=== PATIENT | female | born 1995 | race American Indian/Alaskan Native ===

== ENCOUNTER 2017-04-19 12:31 | Emergency (ER) | payer SELFPAY ==
[2017-04-19 12:39] VITALS: BP 160/101
[2017-04-19 13:25] LABS: Bilirubin,Urine NEG (Negative); Blood,Urine NEG (Negative); Ketones,Urine NEG (Negative); Leukocyte Esterase,Urine MOD (Negative); Mucus,Urine FEW /HPF; Nitrite,Urine NEG (Negative); Protein,Urine <15 mg/dL mg/dL (Negative); Urobilinogen,Urine < 2.0 mg/dL (<2.0)
--- NOTE | 2017-04-19 15:22 | Emergency Department Report ---
ED Abdominal Pain HPI - General Chief Complaint: Urogenital-Female Stated Complaint: Time Seen by Provider: 04/19/17 14:46 Source: patient Mode of arrival: Ambulatory Limitations: No Limitations - History of Present Illness Initial Comments: This is a 21-year-old female nontoxic, well nourished in appearance, no acute signs of distress presents to the ED for a confirmation. Patient stated she had her menstrual cycle last week with abdominal cramping that lasted for 2 days then resolved the patient received again 2 days ago of the spotting but not resolve itself. Patient stated she is concerned that she is and willing to be tested for . Currently in the ED the patient denies any abdominal pain or vaginal bleeding. She had cramping during menstrual cycle but denies having any abdominal cramping now. Patient denies any abdominal pain, nausea, vomiting, chest pain, shortness of breath, numbness , tingling, dysuria, polyuria, hematochezia, back pain, headache, stiff neck, vaginal bleeding. Patient denies any allergies or past medical history. MD Complaint: other ( checkup) -: Gradual, days(s) (2) Radiation: none Migration to: no migration Severity scale (0 -10): 0 Associated Symptoms: denies other symptoms. denies: nausea, vomiting, diarrhea , fever, chills, constipation, dysuria, hematemesis, hematochezia, melena, hematuria, anorexia, syncope - Related Data LMP Date: 04/12/17 Previous Rx's Medication Instructions Recorded Last Taken Type Sulfamethoxazole/Trimethoprim 1 each PO BID #14 tablet 04/19/17 Unknown Rx [Bactrim Ds Tablet] Allergies Allergy/AdvReac Type Severity Reaction Status Date / Time No Known Allergies Allergy Unverified 04/19/17 12:35 ED Review of Systems ROS: Stated complaint: Other details as noted in HPI Constitutional: denies: chills, fever Eyes: denies: eye pain, eye discharge, vision change ENT: denies: ear pain, throat pain Respiratory: denies: cough, shortness of breath, wheezing Cardiovascular: denies: chest pain, palpitations Endocrine: no symptoms reported Gastrointestinal: denies: abdominal pain, nausea, diarrhea Genitourinary: denies: urgency, dysuria, discharge Musculoskeletal: denies: back pain, joint swelling, arthralgia Skin: denies: rash, lesions Neurological: denies: headache, weakness, paresthesias Psychiatric: denies: anxiety, depression Hematological/Lymphatic: denies: easy bleeding, easy bruising ED Past Medical Hx - Past Medical History Previous Medical History?: No - Surgical History Past Surgical History?: No - Social History Smoking Status: Never Smoker Substance Use Type: None - Medications Home Medications: Home Medications Medication Instructions Recorded Confirmed Last Taken Type Sulfamethoxazole/Trimethoprim 1 each PO BID #14 tablet 04/19/17 Unknown Rx [Bactrim Ds Tablet] ED Physical Exam - General Limitations: No Limitations General appearance: alert, in no apparent distress - Head Head exam: Present: atraumatic, normocephalic, normal inspection - Eye Eye exam: Present: normal appearance, PERRL, EOMI. Absent: scleral icterus, conjunctival injection, nystagmus, periorbital swelling, periorbital tenderness Pupils: Present: normal accommodation - ENT ENT exam: Present: normal exam, normal orophraynx, mucous membranes moist, TM's normal bilaterally, normal external ear exam - Neck Neck exam: Present: normal inspection, full ROM. Absent: tenderness, meningismus, lymphadenopathy, thyromegaly - Respiratory Respiratory exam: Present: normal lung sounds bilaterally. Absent: respiratory distress, wheezes, rales, rhonchi, stridor, chest wall tenderness, accessory muscle use, decreased breath sounds, prolonged expiratory - Cardiovascular Cardiovascular Exam: Present: regular rate, normal rhythm, normal heart sounds. Absent: systolic murmur, diastolic murmur, rubs, gallop - GI/Abdominal GI/Abdominal exam: Present: soft, normal bowel sounds. Absent: distended, tenderness, guarding, rebound, rigid, diminished bowel sounds - Expanded GI/Abdominal Exam Expanded GI/Abdominal exam: Absent: psoas sign, obturator sign, heel tap sign, Tobar's sign, Rovsing's sign, tenderness at Mcburney's Point - Rectal Rectal exam: Present: deferred - Extremities Exam Extremities exam: Present: normal inspection, full ROM, normal capillary refill. Absent: tenderness, pedal edema, joint swelling, calf tenderness - Back Exam Back exam: Present: normal inspection, full ROM. Absent: tenderness, CVA tenderness (R), CVA tenderness (L), muscle spasm, paraspinal tenderness, vertebral tenderness, rash noted - Neurological Exam Neurological exam: Present: alert, oriented X3, CN II-XII intact, normal gait, reflexes normal - Psychiatric Psychiatric exam: Present: normal affect, normal mood - Skin Skin exam: Present: warm, dry, intact, normal color. Absent: rash ED Course Vital Signs 04/19/17 12:35 Temperature 98.9 F Pulse Rate 98 H Respiratory 20 Rate Blood Pressure 160/101 O2 Sat by Pulse 99 Oximetry - Reevaluation(s) Reevaluation #1: 04/19/17 15:23 Patient is speaking in full sentences with no signs of distress noted. ED Medical Decision Making - Medical Decision Making This 21-year-old female that is requested for confirmation. Patient was examined by me and patient is stable. UA indicates patient has a UTI with negative test. Patient was notified of x-ray results were normal patient. Patient was treated with Bactrim 7 days. She was also instructed that she had high blood pressure which patient states she does follow a primary care doctor for them but is not diagnosis and patient stated that She is currently on a diet for her blood pressure. Follow-up with a primary care doctor in 3-5 days or if symptoms worsen and continue return to emergency room as soon as possible. At time time of discharge, the patient does not seem toxic or ill in appearance. No acute signs of distress noted. Patient agrees to discharge treatment plan of care. No further questions noted by the patient. Critical care attestation.: If time is entered above; I have spent that time in minutes in the direct care of this critically ill patient, excluding procedure time. ED Disposition Clinical Impression: test negative Hypertension Qualifiers: Hypertension type: unspecified Qualified Code(s): I10 - Essential (primary) hypertension Disposition: TO HOME OR SELFCARE Is pt being admited?: No Does the pt Need Aspirin: No Condition: Stable Instructions: Hypertension (ED), Low Sodium Diet (ED), Urinary Tract Infection in Women (ED) Additional Instructions: Follow-up with a primary care doctor in 3-5 days for high blood pressure and keep a daily diary presented to the primary care doctor or if symptoms worsen and continue return to emergency room as soon as possible. Prescriptions: Sulfamethoxazole/Trimethoprim [Bactrim Ds Tablet] 1 each PO BID #14 tablet Referrals: BENJA BROWN [Other] - 3-5 Days JERRICA VARELA MD [Staff Physician] - 3-5 Days [facility] [Outside] - 3-5 Days [facility] [Outside] - 3-5 Days Forms: Work/School Release Form(ED)
== END 2017-04-19 15:32 | disposition home or self-care (01) ==
LOC: ED 12:31
DX: I10 Essential (primary) hypertension (principal); N93.9 Abnormal uterine and vaginal bleeding, unspecified
CPT/HCPCS: 81001; 81025; 99283